=== PATIENT | female | born 1965 | race Caucasian/White ===

== ENCOUNTER 2022-03-16 14:59 | Emergency (ER) | payer OTHER, SELFPAY ==
--- NOTE | ~2022-03-16 | CT_ITS ---
EXAMINATION: CT brain wo con DATE: 03/16/2022 17:03 INDICATION: Head injury TECHNIQUE: Computed tomography (CT) of the head was performed without intravenous contrast. The mA wa s adjusted according to patient size. Iterative reconstruction technique was employed. The dose-lengt h product was 605.33 mGy-cm. COMPARISON: None FINDINGS: No acute intracranial hemorrhage or extra-axial fluid collection. No hydrocephalus, mass, or herniation. No acute ischemic infarct. Unremarkable dural venous sinus attenuation. No acute osseous abnormality. The aerated spaces are clear. Mild chronic white matter change. IMPRESSION: No acute intracranial process. Reviewed, dictated and finalized at location K.
--- NOTE | ~2022-03-16 | XR_ITS ---
EXAMINATION: XR chest 2V Exam Date/Time: 03/16/2022 15:17 CDT CLINICAL HISTORY: cp Comparison: 03/04/05. RESULT: Lines, tubes, and devices: None. Lungs and pleura: Clear. Cardiomediastinal silhouette: Stable cardiomediastinal silhouette. Other: No acute osseous or upper abdominal finding. IMPRESSION: No acute cardiopulmonary process Reviewed, dictated and finalized at location K.
--- NOTE | ~2022-03-16 | CT_ITS ---
EXAMINATION: CT cervical spine wo con DATE: 03/16/2022 17:03 INDICATION: trauma TECHNIQUE: Computed tomography (CT) of the cervical spine was performed without intravenous contrast. Automated exposure control and iterative reconstruction technique were employed. The dose-length pro duct was 449.59 mGy-cm. COMPARISON: None FINDINGS: Counting reference: Craniocervical junction. There are seven cervical type vertebral bodies. Anatomic Variants: None. Vertebral Body Alignment: Intact. Craniocervical junction: Moderate degenerative change. Alignment intact. Osseous structures/fracture: No evidence of a lytic or blastic process in the visualized spine. N o evidence of acute fracture. Cervical soft tissues: The paraspinal soft tissues planes are maintained. Degenerative changes: Multilevel degenerative disc disease. Multilevel severe neural foraminal narrow ing. IMPRESSION: No acute fracture or traumatic malalignment in the cervical spine. Reviewed, dictated and finalized at location K.
[2022-03-16 15:02] VITALS: BP 160/100; PULSE 75; RESP 16; TEMP 36.6; O2SAT 99
--- NOTE | 2022-03-16 15:06 | ECG_ITS ---
Measurements Intervals [place] Rate: 71 P: 68 TN: 147 QRS: 34 QRSD: 76 T: 45 QT: 354 QTc: 385 Interpretive Statements SINUS RHYTHM BASELINE ARTIFACT- III NORMAL ECG Electronically Signed On 03-16-2022 19:42:48 CDT by Fernando Jacques D.O.
[2022-03-16 15:17] VITALS: PULSE 72
[2022-03-16 15:20] LABS: Basophils Absolute Auto 0.1 K/mm3 (0.0-0.1); Basophils Percent Auto 0.8 % (0.2-1.2); Eosinophils Absolute Auto 0.1 K/mm3 (0-0.3); Eosinophils Percent Auto 1.8 % (0-4.4); Hematocrit 38.8 % (37.0-47.0); Hemoglobin 12.7 g/dL (12.0-15.0); Immature Granulocyte Absolute 0.03 K/mm3 (0.00-0.031); Immature Granulocyte Percent A 0.4 % (0-0.5); Lymphocytes Absolute Auto 1.75 K/mm3 (0.9-3.2); Lymphocytes Percent Auto 23.8 % (18.3-44.2); Mean Corpuscular HGB Conc 32.7 g/dl (32-36); Mean Corpuscular Hemoglobin 30.2 pg (26-34); Mean Corpuscular Volume 92.2 fl (80-100); Mean Platelet Volume 9.6 fl (7.4-10.4); Monocytes Absolute Auto 0.4 K/mm3 (0.1-0.6); Monocytes Percent Auto 5.7 % (2.6-8.5); Neutrophils Percent Auto 67.5 % (45.5-73.1); Platelet Count Result 397 k/mm3 (150-375); Red Blood Count 4.21 M/mm3 (4.2-5.4); Red Cell Distribution Width 14.1 % (11.5-14.5); White Blood Count 7.4 K/mm3 (4.5-10.0)
[2022-03-16] MEDS: ASPIRIN 81 MG CHEWABLE TABLET 324 MG PO (15:21)
[2022-03-16 15:30] LABS: Alanine Aminotransferase 15 U/L (4-35); Albumin Level 4.2 g/dL (3.5-5.1); Alkaline Phosphatase 57 U/L (38-126); Anion Gap 7 mmol/L (8-16); Aspartate Amino Transferase 30 U/L (14-36); Bilirubin,Total 0.2 mg/dL (0.2-1.3); Blood Urea Nitrogen 16 mg/dL (7-17); Calcium 9.3 mg/dL (8.4-10.2); Carbon Dioxide 26 mmol/L (22-30); Chloride 103 mmol/L (98-107); Estimated CRCL calculation 91 ml/min; Estimated Glomerular Filt Rate > 60; Glucose 96 mg/dL (65-110); Lipase 161 U/L (23-300); Potassium 4.8 mmol/L (3.4-5.0); Sodium 136 mmol/L (137-145)
[2022-03-16 15:31] LABS: Prothrombin Time 13.1 Seconds (11.1-14.7)
[2022-03-16 15:32] LABS: Partial Thromboplastin Time 29.8 SECONDS (22.3-36.8)
[2022-03-16 15:42] LABS: Troponin I < 0.012 ng/mL (0.000-0.034)
--- NOTE | 2022-03-16 16:44 | ED.CHESTPAIN ---
HPI - Chest Pain General Chief Complaint: Chest Pain Stated Complaint: chest pain Time Seen by Provider: 03/16/22 15:08 Source: patient Limitations: no limitations History of Present Illness HPI narrative: 56-year-old female presented to the emergency department for evaluation of head neck pain after a ground-level fall a few days ago. Patient states she was at work and fell off her rolling chair and struck the back of her head again the floor. Patient denies any loss of consciousness. Patient since then she has had left lateral neck pain and has had a headache. Patient denies any photophobia. Patient denies any nausea vomiting or diarrhea. Patient states that she did develop some chest pain today. Patient denies any associated shortness of breath Related Data Home Medications Medication Instructions Recorded Confirmed lisinopril 20 mg PO BID 11/23/19 11/23/19 tramadol 50 mg PO Q6H PRN 11/23/19 11/23/19 estradiol-norethindrone acet tablet 03/16/22 03/16/22 meloxicam 15 mg 03/16/22 Allergies Allergy/AdvReac Type Severity Reaction Status Date / Time No Known Allergies Allergy Verified 03/16/22 15:05 Review of Systems Review of Systems: CONSTITUTIONAL: Denies fever, chills, or sweats. EYES: Denies visual changes, redness, or discharge. ENT: Denies rhinorrhea, congestion, sore throat, or otalgia. CARDIOVASCULAR: See HPI RESPIRATORY: Denies cough or dyspnea. GASTROINTESTINAL: Denies abdominal pain, nausea, vomiting, or diarrhea. GENITOURINARY: Denies dysuria or hematuria. SKIN: Denies rash or itching. MUSCULOSKELETAL: See HPI NEUROLOGIC: See HPI PSYCHIATRIC: Denies anxiety or depression. [facility] Past Medical History Medical History (Updated 03/17/22 @ 23:37 by Aidan Anders MD) Hypertension Exam Narrative: APPEARANCE: Well appearing, no pain, no distress, well-nourished. HEAD: normocephalic, atraumatic. EYES: PERRLA/EOMI, conjunctivae clear. NOSE: Normal no drainage NECK: Supple. No adenopathy, no masses. RESPIRATORY: Airway patent, respirations nonlabored. Clear to auscultation bilaterally, no rales, rhonchi, wheezing. CARDIOVASCULAR: Regular rate and rhythm without murmurs rubs or gallops. ABDOMINAL: Soft, nontender, nondistended, normal bowel sounds MUSCULOSKELETAL: No midline back pain. moves all extremities. Strength/ROM intact, No edema, No calf tenderness. NEURO: Alert. Cranial nerves II through XII intact. Grossly intact SKIN: Warm, dry. Normal Color Course Vital Signs Vital signs: Vital Signs Temperature 97.8 F 03/16/22 15:02 Pulse Rate 75 03/16/22 15:02 Respiratory Rate 16 03/16/22 15:02 Blood Pressure 160/100 H 03/16/22 15:02 Pulse Oximetry 99 03/16/22 15:02 Temperature 97.8 F 03/16/22 15:02 Pulse Rate 64 03/16/22 18:54 Respiratory Rate 16 03/16/22 18:54 Blood Pressure 126/86 03/16/22 18:54 Pulse Oximetry 100 03/16/22 18:54 MDM - Chest Pain Lab Data Attestation: I reviewed the patient's lab results. Result diagrams: 03/16/22 15:15 03/16/22 15:15 Labs: Lab Results 03/16/22 03/16/22 03/16/22 Range/Units 15:15 15:15 15:15 WBC 7.4 (4.5-10.0) K/mm3 RBC 4.21 (4.2-5.4) M/mm3 Hgb 12.7 (12.0-15.0) g/dL Hct 38.8 (37.0-47.0) % MCV 92.2 (80-100) fl MCH 30.2 (26-34) pg MCHC 32.7 (32-36) g/dl RDW 14.1 (11.5-14.5) % Plt Count 397 H (150-375) k/mm3 MPV 9.6 (7.4-10.4) fl Immature Gran % (Auto) 0.4 (0-0.5) % Neut % (Auto) 67.5 (45.5-73.1) % Lymph % (Auto) 23.8 (18.3-44.2) % Bates % (Auto) 5.7 (2.6-8.5) % Eos % (Auto) 1.8 (0-4.4) % Baso % (Auto) 0.8 (0.2-1.2) % Lymph # (Auto) 1.75 (0.9-3.2) K/mm3 Bates # (Auto) 0.4 (0.1-0.6) K/mm3 Eos # (Auto) 0.1 (0-0.3) K/mm3 Baso # (Auto) 0.1 (0.0-0.1) K/mm3 Abs Immat Gran (auto) 0.03 (0.00-0.031) K/mm3 Absolute Neuts (auto) 5.0 (1.3-6.7) K/mm3 Absolute Nucleated RBC 0.0 (
[2022-03-16 18:21] VITALS: BP 139/90; PULSE 63; RESP 18; O2SAT 100
[2022-03-16 18:29] LABS: Troponin I < 0.012 ng/mL (0.000-0.034)
[2022-03-16 18:54] VITALS: BP 126/86; PULSE 64; RESP 16; O2SAT 100
== END 2022-03-16 18:55 | disposition home or self-care (01) ==
PROVIDERS: Emergency Medicine; Emergency Provider Emergency Medicine; PCP Internal Medicine
DX: S09.90XA Unspecified injury of head, initial encounter (principal); I10 Essential (primary) hypertension; R07.9 Chest pain, unspecified; W07.XXXA Fall from chair, initial encounter
CPT/HCPCS: 36415; 70450; 71046; 72125; 80053; 83690; 84484; 85025; 85610; 85730; 93005; 99284; A9270